=== PATIENT | female | born 2000 | race Caucasian/White ===

== ENCOUNTER 2022-08-05 12:51 | Emergency (ER) | payer MEDICAID, SELFPAY ==
[~2022-08-05] VITALS: Ht 152.4 cm; Wt 43.2 kg
[2022-08-05 12:52] VITALS: BP 94/66
[2022-08-05] MEDS ORDERED: ONDANSETRON 4MG 2ML VIAL IV ONE (13:45)
[2022-08-05] MEDS ORDERED: NS 1,000 ML IV ONE (13:45)
[2022-08-05] MEDS ORDERED: KETOROLAC 30 MG/ML 1ML VIAL IV ONE (13:45)
[2022-08-05] MEDS ORDERED: PANTOPRAZOLE 40MG VIAL IV ONE (13:45)
[2022-08-05] MEDS ORDERED: ISOVUE-370 76% 100ML VIAL As Ordered ONE (14:28)
[2022-08-05 14:49] LABS: BASO % 0.6 % (0.0-1.0); EOS # 0.1 10^3/uL (0.0-0.5); EOS % 1.6 % (0.0-3.0); HEMATOCRIT 40.4 % (36.0-47.0); HEMOGLOBIN 12.7 g/dl (12.0-15.5); LYMPH # 1.7 10^3/uL (1.5-5.0); MEAN CORPUSCULAR HGB CONC 31.4 g/dl (32.0-36.5); MEAN CORPUSCULAR VOLUME 89.2 fl (80.0-96.0); MONO # 0.6 10^3/uL (0.0-0.8); MONO % 8.8 % (2.0-8.0); NEUTROPHILS # 4.5 10^3/uL (1.5-8.5); NEUTROPHILS % 64.9 % (36.0-66.0); PLATELET COUNT, AUTOMATED 275 10^3/uL (150-450); RED BLOOD COUNT 4.53 10^6/uL (4.00-5.40)
[2022-08-05 15:05] LABS: LIPASE 38 U/L (12-53)
[2022-08-05 15:06] LABS: CK-MB VALUE MASS < 1.0 NG/ML (<3.6)
[2022-08-05 15:07] LABS: BILIRUBIN,DIRECT 0.4 MG/DL (<0.4)
[2022-08-05 15:42] LABS: ALKALINE PHOSPHATASE 64 U/L (46-116); ALT/SGPT 11 U/L (7.0-40); AST/SGOT 30 U/L (<34); BILIRUBIN,TOTAL 1.6 MG/DL (0.3-1.2); CPK CREATINE PHOSPHOKINASE 64 U/L (34-145); MB/CK RELATIVE INDEX 1.56 (< OR =4); POTASSIUM SERUM 4.6 MMOL/L (3.5-5.1); TOTAL PROTEIN 7.1 G/DL (5.7-8.2)
[2022-08-05] MEDS ORDERED: CARA1TAB6 PO (16:22)
[2022-08-05] MEDS ORDERED: PANT40TA29 PO (16:22)
== END 2022-08-05 16:35 | disposition home or self-care (01) ==
LOC: M ED 12:51
DX: K21.9 Gastro-esophageal reflux disease without esophagitis (principal); F41.9 Anxiety disorder, unspecified; Z87.442 Personal history of urinary calculi
CPT/HCPCS: 71046; 74177; 80047; 80076; 82550; 82553; 83690; 84132; 84484; 84702; 85025; 93005; 96361; 96374; 96375; 99284; C9113; J1885; J2405